=== PATIENT | male | born 1940 | race American Indian/Alaskan Native ===

== ENCOUNTER → 2019-08-11 | Outpatient (CLI) | payer MEDICARE, OTHER ==
[~2019-08-11] MED LIST: ACET325 PO; ALBU90OI6 INH; BUME2 PO; CEFD300 PO; CEPH500 PO; ENOX30I SUBQ; GABA100 PO; HYDACE5 PO; LISHYD2025 PO; LISI20 PO; OMEP40CA12 PO; OXYC5 PO; Percocet 10-321 EACH PO; SENN187 PO; SULTRIDS PO; TAMS.4ER PO
[2019-08-11 12:09] LABS: BASOPHILS ABSOLUTE AUTO 0.05 K/mm3 (0.00-0.23); BASOPHILS PERCENT AUTO 1 % (0-2); EOSINOPHILS ABSOLUTE AUTO 0.02 K/mm3 (0.00-0.68); EOSINOPHILS PERCENT AUTO 0 % (0-6); Hematocrit 43.9 % (37.0-53.0); Hemoglobin 15.5 g/dL (13.5-17.5); IMMATURE GRAN ABSOLUTE AUTO 0.15 K/mm3 (0.00-0.10); IMMATURE GRAN PERCENT AUTO 3 % (0-1); LYMPHOCYTES ABSOLUTE AUTO 1.16 K/mm3 (0.84-5.20); LYMPHOCYTES PERCENT AUTO 24 % (21-46); MONOCYTES ABSOLUTE AUTO 0.48 K/mm3 (0.16-1.47); MONOCYTES PERCENT AUTO 10 % (4-13); Mean Corpuscular HGB 31.5 pg (26.0-34.0); Mean Corpuscular HGB Conc 35.3 g/dL (31.5-36.5); Mean Corpuscular Volume 89 fL (80-100); Mean Platelet Volume 12.7 fL (9.1-12.4); NEUTROPHILS ABSOLUTE AUTO 3.07 K/mm3 (1.96-9.15); NEUTROPHILS PERCENT AUTO 62 % (41-73); Platelet Count 123 K/mm3 (150-400); RDW Coefficient Variation 13.9 % (11.7-14.2); RDW Standard Deviation 45.1 fL (35.1-46.3); Red Blood Cell Count 4.92 M/mm3 (4.30-5.90); White Blood Cell Count 4.93 K/mm3 (4.00-11.30)
[2019-08-11 12:17] LABS: Albumin, Blood 2.7 g/dL (3.4-5.0); Albumin/Globulin Ratio 0.8 (0.8-1.8); Bun/Creatinine Ratio 16.8 (12.0-20.0); Calcium, Blood 8.5 mg/dL (8.5-10.1); Creatinine, Blood 1.31 mg/dL (0.60-1.20); Globulin, Blood 3.2 g/dL (2.2-4.0); Potassium, Blood 4.3 mmol/L (3.5-5.5); Total Protein, Blood 5.9 g/dL (6.4-8.2)
== END ==
LOC: LAB EV 12:04 → LAB SHORT 12:04
PROVIDERS: Nurse Practitioner
DX: L03.90 Cellulitis, unspecified (principal)
CPT/HCPCS: 80053; 85025

== ENCOUNTER 2020-07-13 22:10 | Emergency (ER) | payer MEDICARE, OTHER ==
[~2020-07-13] VITALS: Ht 198.1 cm; Wt 136.1 kg
[2020-07-13] MEDS ORDERED: DIPH25 PO (22:24)
[2020-07-13 22:52] LABS: PCO2 Arterial 38.6 mmHg (35-45); PO2 Arterial 79.4 mmHg (80-100); pH Blood Arterial 7.42 (7.35-7.45)
[2020-07-13 22:58] LABS: BASOPHILS ABSOLUTE AUTO 0.21 K/mm3 (0.00-0.23); BASOPHILS PERCENT AUTO 1 % (0-2); EOSINOPHILS ABSOLUTE AUTO 0.01 K/mm3 (0.00-0.68); EOSINOPHILS PERCENT AUTO 0 % (0-6); Hematocrit 45.8 % (37.0-53.0); Hemoglobin 15.7 g/dL (13.5-17.5); IMMATURE GRAN ABSOLUTE AUTO 0.52 K/mm3 (0.00-0.10); IMMATURE GRAN PERCENT AUTO 3 % (0-1); LYMPHOCYTES ABSOLUTE AUTO 1.26 K/mm3 (0.84-5.20); LYMPHOCYTES PERCENT AUTO 7 % (21-46); MONOCYTES ABSOLUTE AUTO 3.17 K/mm3 (0.16-1.47); MONOCYTES PERCENT AUTO 18 % (4-13); Mean Corpuscular HGB 30.8 pg (26.0-34.0); Mean Corpuscular HGB Conc 34.3 g/dL (31.5-36.5); Mean Corpuscular Volume 90 fL (80-100); NEUTROPHILS ABSOLUTE AUTO 12.97 K/mm3 (1.96-9.15); NEUTROPHILS PERCENT AUTO 71 % (41-73); Platelet Count 72 K/mm3 (150-400); RDW Standard Deviation 46.8 fL (35.1-46.3); Red Blood Cell Count 5.09 M/mm3 (4.30-5.90); White Blood Cell Count 18.14 K/mm3 (4.00-11.30)
[2020-07-13 23:16] LABS: Alanine Aminotransfer (ALT/SGP 14 U/L (12-78); Albumin, Blood 2.9 g/dL (3.4-5.0); Albumin/Globulin Ratio 0.9 (0.8-1.8); Alk Phos 62 U/L (50-136); Anion Gap 7 mmol/L (6-16); Aspartate Aminotrans (AST/SGOT 17 U/L (12-37); Bilirubin, Total 2.4 mg/dL (0.1-1.0); Blood Urea Nitrogen 24 mg/dL (8-24); Bun/Creatinine Ratio 17.1 (12.0-20.0); CO2, Blood 26 mmol/L (21-32); Calcium, Blood 8.3 mg/dL (8.5-10.1); Chloride, Blood 105 mmol/L (98-108); Globulin, Blood 3.3 g/dL (2.2-4.0); Glomerular Filtration Rate 52 (60-); Glucose, Blood 127 mg/dL (70-99); Sodium, Blood 138 mmol/L (136-145); Total Protein, Blood 6.2 g/dL (6.4-8.2); Troponin I <0.015 ng/mL (0.000-0.040)
[2020-07-13 23:24] LABS: Influenza A, PCR Negative (NEGATIVE); Influenza B, PCR Negative (NEGATIVE); Resp Syncytial Virus, PCR Negative (NEGATIVE); SARS-Cov-2 (COVID-19) PCR, MMC Negative (NEGATIVE)
[2020-07-14] MEDS ORDERED: Lasix40 MG PO (01:28)
[2020-07-14] MEDS ORDERED: POTCHL20ER PO (01:29)
== END 2020-07-14 01:48 | disposition home or self-care (01) ==
LOC: ER 22:10
PROVIDERS: Emergency Medicine
DX: E87.70 Fluid overload, unspecified (principal); Z91.09 Other allergy status, other than to drugs and biological substances; Z20.828 Contact with and (suspected) exposure to other viral communicable diseases; Z79.899 Other long term (current) drug therapy
CPT/HCPCS: 0241U; 36415; 36600; 71045; 80053; 82803; 83880; 84484; 85025; 93005; 93010; 94640; 96374; 99284-25

== ENCOUNTER 2021-02-05 16:32 | Emergency (ER) | payer MEDICARE, OTHER | END 2021-02-05 22:35 | disposition home or self-care (01) | LOC: ER 16:32 | DX: J18.9 Pneumonia, unspecified organism (principal); Z91.09 Other allergy status, other than to drugs and biological substances; Z79.899 Other long term (current) drug therapy ==

== ENCOUNTER → 2021-08-07 | Outpatient (CLI) | payer MEDICARE, OTHER ==
[~2021-08-07] MED LIST changes: +DIPH25 PO; +DOXY100 PO; +Lasix40 MG PO; +POTCHL20ER PO
== END | disposition home or self-care (01) ==
LOC: LAB SHORT 18:49
DX: R10.9 Unspecified abdominal pain (principal)
CPT/HCPCS: 87086

== ENCOUNTER 2021-10-03 18:19 | Inpatient (IN) | payer MEDICARE, OTHER ==
[~2021-10-03] VITALS: Ht 198.1 cm; Wt 158.8 kg
[2021-10-03 19:08] LABS: Source, Urine Clean Catch
[2021-10-03 19:18] LABS: Blood, Urine 5+ (Neg); Glucose Qualitative, Urine Neg (Neg); Ketones, Urine 2+ (Neg); Leukocyte Esterase, Urine 3+ (Neg); Nitrite, Urine Neg (Neg); Protein, Urine 3+ (Neg); Specific Gravity, Urine 1.025 (1.003-1.022); Urobilinogen, Urine 1+ (Normal)
[2021-10-03 19:22] LABS: BASOPHILS ABSOLUTE AUTO 0.19 K/mm3 (0.00-0.23); BASOPHILS PERCENT AUTO 1 % (0-2); EOSINOPHILS ABSOLUTE AUTO 0.03 K/mm3 (0.00-0.68); EOSINOPHILS PERCENT AUTO 0 % (0-6); Hematocrit 45.3 % (37.0-53.0); Hemoglobin 15.6 g/dL (13.5-17.5); IMMATURE GRAN ABSOLUTE AUTO 0.56 K/mm3 (0.00-0.10); IMMATURE GRAN PERCENT AUTO 3 % (0-1); LYMPHOCYTES ABSOLUTE AUTO 1.66 K/mm3 (0.84-5.20); LYMPHOCYTES PERCENT AUTO 8 % (21-46); MONOCYTES ABSOLUTE AUTO 3.98 K/mm3 (0.16-1.47); MONOCYTES PERCENT AUTO 18 % (4-13); Mean Corpuscular HGB Conc 34.4 g/dL (31.5-36.5); Mean Corpuscular Volume 93 fL (80-100); NEUTROPHILS ABSOLUTE AUTO 15.26 K/mm3 (1.96-9.15); NEUTROPHILS PERCENT AUTO 70 % (41-73); NRBC ABSOLUTE 0.02 K/mm3 (0.00-0.02); NRBC Auto 0.1 /100 WBC (0.0-0.2); Platelet Count 72 K/mm3 (150-400); RDW Coefficient Variation 15.4 % (11.7-14.2); RDW Standard Deviation 52.7 fL (35.1-46.3); Red Blood Cell Count 4.88 M/mm3 (4.30-5.90); White Blood Cell Count 21.68 K/mm3 (4.00-11.30)
[2021-10-03 19:27] LABS: Appearance, Urine Cloudy (Clear); Bilirubin, Urine 1+ (Neg); Color, Urine Pale Yellow (P-Yellow)
[2021-10-03 19:28] LABS: Amorphous Light (0-Heavy); Bacteria Many /hpf; Mucus Light (0-Heavy); Red Blood Cells, Urine 25-50 /hpf (0-2); Squamous Epithelial Cells Few /hpf (Few); Yeast/Fungi Urine Few /hpf
[2021-10-03 19:34] LABS: Alanine Aminotransfer (ALT/SGP 14 U/L (12-78); Albumin, Blood 3.5 g/dL (3.4-5.0); Albumin/Globulin Ratio 1.1 (0.8-1.8); Alk Phos 70 U/L (50-136); Anion Gap 8 mmol/L (6-16); Aspartate Aminotrans (AST/SGOT 18 U/L (12-37); Bilirubin, Total 2.4 mg/dL (0.1-1.0); Blood Urea Nitrogen 22 mg/dL (8-24); CO2, Blood 26 mmol/L (21-32); Calcium, Blood 9.3 mg/dL (8.5-10.1); Chloride, Blood 104 mmol/L (98-108); Creatinine, Blood 1.16 mg/dL (0.60-1.20); Ethanol (Alcohol), Blood, Med <3 mg/dL; Globulin, Blood 3.3 g/dL (2.2-4.0); Glomerular Filtration Rate >60 (60-); Glucose, Blood 91 mg/dL (70-99); Potassium, Blood 4.5 mmol/L (3.5-5.5); Sodium, Blood 138 mmol/L (136-145); Total Protein, Blood 6.8 g/dL (6.4-8.2)
[2021-10-03 21:00] LABS: International Normalized Ratio 1.5; Prothrombin Time Results 15.3 Sec (9.7-11.5)
[2021-10-04 05:27] LABS: BASOPHILS ABSOLUTE AUTO 0.15 K/mm3 (0.00-0.23); BASOPHILS PERCENT AUTO 1 % (0-2); EOSINOPHILS ABSOLUTE AUTO 0.02 K/mm3 (0.00-0.68); EOSINOPHILS PERCENT AUTO 0 % (0-6); Hematocrit 40.5 % (37.0-53.0); Hemoglobin 13.8 g/dL (13.5-17.5); IMMATURE GRAN ABSOLUTE AUTO 0.57 K/mm3 (0.00-0.10); IMMATURE GRAN PERCENT AUTO 3 % (0-1); LYMPHOCYTES ABSOLUTE AUTO 1.46 K/mm3 (0.84-5.20); LYMPHOCYTES PERCENT AUTO 7 % (21-46); MONOCYTES ABSOLUTE AUTO 3.46 K/mm3 (0.16-1.47); MONOCYTES PERCENT AUTO 17 % (4-13); Mean Corpuscular HGB 31.7 pg (26.0-34.0); Mean Corpuscular HGB Conc 34.1 g/dL (31.5-36.5); Mean Corpuscular Volume 93 fL (80-100); NEUTROPHILS ABSOLUTE AUTO 14.45 K/mm3 (1.96-9.15); NEUTROPHILS PERCENT AUTO 72 % (41-73); Platelet Count 75 K/mm3 (150-400); RDW Coefficient Variation 15.2 % (11.7-14.2); RDW Standard Deviation 52.4 fL (35.1-46.3); Red Blood Cell Count 4.35 M/mm3 (4.30-5.90); White Blood Cell Count 20.11 K/mm3 (4.00-11.30)
--- NOTE | 2021-10-04 06:01 | NUR ---
SHIFT SUMMARY PT ADMITTED TO ROOM 331 FROM ER. PT A/O X 3, UNSURE OF DATE, FORGETFUL AT TIMES. PT REPORTS BURNING WITH URINATION, MÁRQUEZ PLACED PER ORDERS, UGO, CLOUDY URINE NOTED. PT SOB AT REST, FEW WHEEZES HEARD IN UPPER LOBES, DIM IN BASES, MED PER MAR WITH LASIX AND 1650 ML URINE OUTPUT FOR SHIFT. PT STANDS WITH 1 ASSIST, USES CANE AT HOME. SKIN INTACT, VSS, CONTROLLED AFIB NOTED ON TELE. PT ORIENTED TO ROOM AND PLAN OF CARE. ANTICIPATE D/C WHEN MEDICALLY STABLE.
[2021-10-04 06:07] LABS: Albumin, Blood 2.9 g/dL (3.4-5.0); Bun/Creatinine Ratio 18.9 (12.0-20.0); Creatinine, Blood 1.22 mg/dL (0.60-1.20); Globulin, Blood 2.9 g/dL (2.2-4.0); Potassium, Blood 3.8 mmol/L (3.5-5.5); Total Protein, Blood 5.8 g/dL (6.4-8.2)
--- NOTE | 2021-10-04 15:16 | NUR ---
SHIFT SUMMARY PT AWAKE AT START OF SHIFT THIS AM. SOME CONFUSION NOTED. MÁRQUEZ TO GRAVITY, PATENT WITH GOOD OUTPUT; SEE CHART. PT VERY SWOLLEN; 4+ EDEMA TO BLE'S. LASIX GIVEN. A-FIB PER TELE MX. SOME SOB WITH EXERTION TRYING TO GET UP TO EOB. PT IS MORBIDLY OBESE, MAKING MOBILITY DIFFICULT. PT/OT IN TO WORK WITH PT. DR Koby FELDMAN IN TO SEE PT THIS AM. PT'S LATER IN TO VISIT AND TOOK PT'S CLOTHES HOME WASH THEM. PT RESTING QUIETLY WATCHING TV. CALL LT IN REACH.
[2021-10-05 05:26] LABS: BASOPHILS ABSOLUTE AUTO 0.15 K/mm3 (0.00-0.23); BASOPHILS PERCENT AUTO 1 % (0-2); EOSINOPHILS ABSOLUTE AUTO 0.04 K/mm3 (0.00-0.68); EOSINOPHILS PERCENT AUTO 0 % (0-6); Hemoglobin 14.5 g/dL (13.5-17.5); IMMATURE GRAN ABSOLUTE AUTO 0.56 K/mm3 (0.00-0.10); IMMATURE GRAN PERCENT AUTO 4 % (0-1); LYMPHOCYTES ABSOLUTE AUTO 1.49 K/mm3 (0.84-5.20); LYMPHOCYTES PERCENT AUTO 10 % (21-46); MONOCYTES ABSOLUTE AUTO 2.98 K/mm3 (0.16-1.47); MONOCYTES PERCENT AUTO 20 % (4-13); Mean Corpuscular HGB 32.1 pg (26.0-34.0); Mean Corpuscular HGB Conc 34.5 g/dL (31.5-36.5); Mean Corpuscular Volume 93 fL (80-100); NEUTROPHILS ABSOLUTE AUTO 10.01 K/mm3 (1.96-9.15); NEUTROPHILS PERCENT AUTO 66 % (41-73); Platelet Count 72 K/mm3 (150-400); RDW Coefficient Variation 15.4 % (11.7-14.2); RDW Standard Deviation 52.8 fL (35.1-46.3); Red Blood Cell Count 4.52 M/mm3 (4.30-5.90); White Blood Cell Count 15.23 K/mm3 (4.00-11.30)
[2021-10-05 05:49] LABS: Albumin, Blood 2.8 g/dL (3.4-5.0); Albumin/Globulin Ratio 0.9 (0.8-1.8); Bilirubin, Total 1.6 mg/dL (0.1-1.0); Bun/Creatinine Ratio 19.2 (12.0-20.0); Calcium, Blood 9.3 mg/dL (8.5-10.1); Creatinine, Blood 1.2 mg/dL (0.60-1.20); Potassium, Blood 3.5 mmol/L (3.5-5.5); Total Protein, Blood 5.8 g/dL (6.4-8.2)
--- NOTE | 2021-10-05 06:00 | NUR ---
PM SHIFT SUMMARY PATIENT IS A&OX2 - HE IS NOT ORIENTED TO TIME AND SITUATION. HE KEPT STATING THAT NO DOCTORS CAME TO SEE HIM AND I KEPT LETTING HIM KNOW WHAT TIME IT WAS QUITE OFTEN. HE KEPT CALLING ME WITH HIS CALL LIGHT, BUT WAS EITHER UNSURE WHY, OR DID NOT NEED ANYTHING. HE BELIEVES HE IS GOING HOME TODAY. HE WISHES TO SPEAK WITH THE DOCTOR WHEN THEY MAKE THEIR ROUNDS. MÁRQUEZ IN PLACE AND DRAINING YELLOW URINE. BLOOD CULTURES SHOWED NO GROWTH AT DAY 1. HAS BLE SWELLING WHICH IS BASELINE BASED ON NOTES. ONLY TELE CALLS WERE PERTAINING TO HIS LEADS COMING OFF. PT/OT TO EVALUATE HIM AND MAKE RECS ON DC PLANNING.
--- NOTE | 2021-10-05 15:36 | NUR ---
SHIFT SUMMARY PT RESTING QUIETLY AT START OF SHIFT. WOKE EASILY FOR CARE. DECLINED GETTING UP TO SHOWER. PT WANING TO GO HOME ALL DAY, BUT REMAINS VERY WEAK AND DECONDITIONED. DR PATEL AND DR PERSON BOTH IN TO SEE PT THIS AFTERNOON. NEW ORDERS PLACED. IV SITE LEAKING THIS AM; NEW ORDER TO LEAVE IV OUT AND MEDS CHANGED TO PO. ORDERS TO D/C TELE AND MÁRQUEZ CATH. BLADDER SCANNED FOR PVR WITH ONLY 58cc. PT VOIDING 100cc URINE EVERY FEW MINUTES. PT IS CONTINENT WITH ASSISTANCE ONLY. PT USES CALL LT AT TIMES, BUT MOSTLY JUST YELLS OUT. NO C/O PAIN. DOES NOT LIKE THE FOOD HERE. RESTING QUIELY, WATCHING TV AT THIS TIME. CALL LT IN REACH.
[2021-10-06 05:31] LABS: BASOPHILS ABSOLUTE AUTO 0.12 K/mm3 (0.00-0.23); BASOPHILS PERCENT AUTO 1 % (0-2); EOSINOPHILS ABSOLUTE AUTO 0.06 K/mm3 (0.00-0.68); EOSINOPHILS PERCENT AUTO 1 % (0-6); Hematocrit 41.4 % (37.0-53.0); Hemoglobin 14.3 g/dL (13.5-17.5); IMMATURE GRAN ABSOLUTE AUTO 0.39 K/mm3 (0.00-0.10); IMMATURE GRAN PERCENT AUTO 4 % (0-1); LYMPHOCYTES ABSOLUTE AUTO 1.36 K/mm3 (0.84-5.20); LYMPHOCYTES PERCENT AUTO 15 % (21-46); MONOCYTES PERCENT AUTO 20 % (4-13); Mean Corpuscular HGB 32.4 pg (26.0-34.0); Mean Corpuscular HGB Conc 34.5 g/dL (31.5-36.5); Mean Corpuscular Volume 94 fL (80-100); NEUTROPHILS ABSOLUTE AUTO 5.49 K/mm3 (1.96-9.15); NEUTROPHILS PERCENT AUTO 59 % (41-73); Platelet Count 82 K/mm3 (150-400); RDW Standard Deviation 51.9 fL (35.1-46.3); Red Blood Cell Count 4.41 M/mm3 (4.30-5.90); White Blood Cell Count 9.32 K/mm3 (4.00-11.30)
[2021-10-06 05:39] LABS: Mean Platelet Volume 13.1 fL (9.1-12.4)
--- NOTE | 2021-10-06 05:46 | NUR ---
PATIENT HAD MÁRQUEZ REMOVED DURING AM SHIFT. WAS TOLD DURING REPORT THAT HE WAS CALLING FOR HELP WITH URNIAL MULTIPLE TIMES AN HOUR. WHEN I ARRIVED, I SPOKE TO HIM ABOUT URGENCY AND HOW BEST TO GET AHOLD PF US DURING SHIFT - USE CALL LIGHT .VS. YELLING FOR US. I GAVE HIM AN ADDITIONAL URINAL AND STATED HE SHOULD CALL WHEN BOTH NEEDED EMPTIED. OVER THE COURSE OF THE SHIFT, URINALS WERE EMPTIED 17 TIMES. HE SAYS HE WAS FILLING THEM HALF WAY, BUT WAS ONLY GETTING ABOUT 75-150ML PER URINATION. HE WAS STILL VERY CONFUSED DURING THE SHIFT, JUST HE WAS PREVIOUS EVENING. PER REPORT, PT/OT TRIED TO WORK WITH HIM AND SAID HE WILL NEED TO HEAD TO A SNF TO REHAB, DUE TO DECONDITIONING. HIS TELE WAS ALSO REMOVED DURING AM SHIFT. UC WAS POSITIVE FOR KLEBSIELLA OXYTOCA. BLOOD CULTURES SHOWED NO GROWTH AT DAY 2. HE IS ON STRICT I&O'S. HE HAD NO COMPLAINTS DURING THE SHIFT.
--- NOTE | 2021-10-06 17:10 | NUR ---
NO ACUTE CHANGES THIS SHIFT. PATIENT UP WITH FWW, GB AND 2 ASSIST TO RESTROOM. A/OX3, FORGETFUL. WORKED WITH PT/OT TODAY. VSS, ON RA. TOLERATING REGULAR DIET. USING URINAL TO VOID, HAVING FREQUENCY AND URGENCY. AT BEDSIDE THIS AM AND IS ON BOARD WITH PATIENT GOING TO SNF AT DISCHARGE. PATIENT COOPERATIVE WITH CARE AND USES CALL LIGHT APPROPRIATELY FOR ASSISTANCE.
--- NOTE | 2021-10-07 05:47 | NUR ---
SHIFT SUMMARY PT VERY RESTLESS T/O NIGHT. HAS NOT SLEPT TONIGHT. AOX2-SELF, PLACE. UNAWARE SITUATION OR DATE. FORGETFUL, CONFUSED & IMPULSIVE. VSS. DENIES PAIN, N/V OR DYSPNEA. +3 EDEMA BLE, ELEVATED LEGS ON PILLOWS. INCONT/CONT c URINAL, HAS URGENCY & FREQUENCY. CALL LIGHT & BED ALARM IN PLACE. WCTM.
[2021-10-07] MEDS ORDERED: SULFAMETHOXAZO1 EAC1 PO (16:36)
[2021-10-07] MEDS ORDERED: VISBIOME 112.51 EACH PO (16:37)
[2021-10-07 16:55] LABS: Influenza A, PCR NEGATIVE (NEGATIVE); Influenza B, PCR NEGATIVE (NEGATIVE); Resp Syncytial Virus, PCR NEGATIVE (NEGATIVE); SARS-Cov-2 (COVID-19) PCR, MMC NEGATIVE (NEGATIVE)
--- NOTE | 2021-10-07 17:53 | NUR ---
NO ACUTE CHANGES THIS SHIFT. PATIENT HAS FACILITY DISCHARGE ORDERS AND IS AWAITING TRANSPORT TO [facility]. VSS, ON RA. LAST BM WAS LAST NIGHT. PATIENT TOLERATING DIET. DENIES ANY PAIN OR DISCOMFORT. SPOKE WITH PATIENTS REBEKAH AND UPDATED HER ABOUT DISCHARGE.
== END 2021-10-07 18:11 | DRG 871 ==
LOC: ER 18:19 → MEDS 23:01
PROVIDERS: Emergency Medicine; Family Medicine; ADMIT Internal Medicine
DX: A41.59 Other Gram-negative sepsis (principal); I50.33 Acute on chronic diastolic (congestive) heart failure; G92.8 Other toxic encephalopathy; N39.0 Urinary tract infection, site not specified; Z68.41 Body mass index [BMI] 40.0-44.9, adult; Z20.822 Contact with and (suspected) exposure to COVID-19; B96.1 Klebsiella pneumoniae [K. pneumoniae] as the cause of diseases classified elsewhere; E66.9 Obesity, unspecified; F03.90 Unspecified dementia, unspecified severity, without behavioral disturbance, psychotic disturbance, mood disturbance, and anxiety; D69.6 Thrombocytopenia, unspecified; I48.0 Paroxysmal atrial fibrillation; Z28.21 Immunization not carried out because of patient refusal; N40.0 Benign prostatic hyperplasia without lower urinary tract symptoms; M19.90 Unspecified osteoarthritis, unspecified site; Z90.5 Acquired absence of kidney; Z79.899 Other long term (current) drug therapy; Z91.09 Other allergy status, other than to drugs and biological substances; Z85.528 Personal history of other malignant neoplasm of kidney; Z98.890 Other specified postprocedural states
CPT/HCPCS: 0241U; 36415; 74022; 80053; 81001; 82140; 83605; 83690; 83880; 84484; 85025; 85610; 85730; 87040; 87077; 87086; 87186; 93005; 93010; 93308; 93321; 94640; 94760; 96374; 97110; 97162; 97166; 97530; 99285-25; A9270; G0480; J0696; J1650; J1940

== ENCOUNTER 2022-04-29 12:38 | Emergency (ER) | payer MEDICARE, OTHER ==
[~2022-04-29] VITALS: Ht 198.1 cm; Wt 154.2 kg
[~2022-04-29 12:38] MED LIST changes: +SULFAMETHOXAZO1 EAC1 PO; +VISBIOME 112.51 EACH PO
[2022-04-29 13:26] LABS: BASOPHILS ABSOLUTE AUTO 0.08 K/mm3 (0.00-0.23); BASOPHILS PERCENT AUTO 2 % (0-2); EOSINOPHILS ABSOLUTE AUTO 0.06 K/mm3 (0.00-0.68); EOSINOPHILS PERCENT AUTO 2 % (0-6); Hematocrit 43.2 % (37.0-53.0); Hemoglobin 14.8 g/dL (13.5-17.5); IMMATURE GRAN ABSOLUTE AUTO 0.07 K/mm3 (0.00-0.10); IMMATURE GRAN PERCENT AUTO 2 % (0-1); LYMPHOCYTES ABSOLUTE AUTO 1.53 K/mm3 (0.84-5.20); LYMPHOCYTES PERCENT AUTO 39 % (21-46); MONOCYTES PERCENT AUTO 13 % (4-13); Mean Corpuscular HGB 30.3 pg (26.0-34.0); Mean Corpuscular HGB Conc 34.3 g/dL (31.5-36.5); Mean Corpuscular Volume 88 fL (80-100); NEUTROPHILS ABSOLUTE AUTO 1.65 K/mm3 (1.96-9.15); NEUTROPHILS PERCENT AUTO 42 % (41-73); Platelet Count 83 K/mm3 (150-400); RDW Coefficient Variation 16.7 % (11.7-14.2); RDW Standard Deviation 53.4 fL (35.1-46.3); Red Blood Cell Count 4.89 M/mm3 (4.30-5.90); White Blood Cell Count 3.89 K/mm3 (4.00-11.30)
[2022-04-29 13:42] LABS: Albumin, Blood 3.6 g/dL (3.4-5.0); Albumin/Globulin Ratio 0.9 (0.8-1.8); Bilirubin, Total 1.3 mg/dL (0.1-1.0); Calcium, Blood 9.4 mg/dL (8.5-10.1); Creatinine, Blood 1.43 mg/dL (0.60-1.20); Globulin, Blood 3.8 g/dL (2.2-4.0); Potassium, Blood 4.9 mmol/L (3.5-5.5); Total Protein, Blood 7.4 g/dL (6.4-8.2)
== END 2022-04-29 15:47 | disposition home or self-care (01) ==
LOC: ER 12:38
PROVIDERS: Emergency Medicine
DX: I50.9 Heart failure, unspecified (principal); R60.0 Localized edema; M25.562 Pain in left knee
CPT/HCPCS: 80053; 83880; 84484; 85025; 93005; 93010; 99283-25

== ENCOUNTER 2022-06-11 08:44 | Inpatient (IN) | payer MEDICARE, OTHER ==
[~2022-06-11] VITALS: Ht 198.1 cm; Wt 159.0 kg
[2022-06-11 09:58] LABS: BASOPHILS PERCENT AUTO 2 % (0-2); EOSINOPHILS ABSOLUTE AUTO 0.02 K/mm3 (0.00-0.68); EOSINOPHILS PERCENT AUTO 0 % (0-6); Hemoglobin 14.1 g/dL (13.5-17.5); IMMATURE GRAN ABSOLUTE AUTO 0.12 K/mm3 (0.00-0.10); IMMATURE GRAN PERCENT AUTO 2 % (0-1); LYMPHOCYTES PERCENT AUTO 26 % (21-46); MONOCYTES ABSOLUTE AUTO 1.54 K/mm3 (0.16-1.47); MONOCYTES PERCENT AUTO 23 % (4-13); Mean Corpuscular HGB 30.1 pg (26.0-34.0); Mean Corpuscular HGB Conc 34.4 g/dL (31.5-36.5); Mean Corpuscular Volume 87 fL (80-100); NEUTROPHILS ABSOLUTE AUTO 3.15 K/mm3 (1.96-9.15); NEUTROPHILS PERCENT AUTO 48 % (41-73); Platelet Count 70 K/mm3 (150-400); RDW Coefficient Variation 17.2 % (11.7-14.2); RDW Standard Deviation 54.3 fL (35.1-46.3); Red Blood Cell Count 4.69 M/mm3 (4.30-5.90); White Blood Cell Count 6.63 K/mm3 (4.00-11.30)
[2022-06-11 10:12] LABS: Source, Urine Straight Cath
[2022-06-11 10:14] LABS: Appearance, Urine Clear (Clear); Bilirubin, Urine Neg (Neg); Blood, Urine Neg (Neg); Color, Urine Yellow (P-Yellow); Glucose Qualitative, Urine Neg (Neg); Ketones, Urine Neg (Neg); Leukocyte Esterase, Urine Neg (Neg); Nitrite, Urine Neg (Neg); Protein, Urine Neg (Neg); Specific Gravity, Urine 1.015 (1.003-1.022); Urobilinogen, Urine 1+ (Normal)
[2022-06-11 10:17] LABS: Albumin, Blood 3.3 g/dL (3.4-5.0); Bilirubin, Total 1.1 mg/dL (0.1-1.0); Bun/Creatinine Ratio 14.6 (12.0-20.0); Calcium, Blood 8.8 mg/dL (8.5-10.1); Creatinine, Blood 1.37 mg/dL (0.60-1.20); Globulin, Blood 3.3 g/dL (2.2-4.0); Potassium, Blood 4.1 mmol/L (3.5-5.5); Total Protein, Blood 6.6 g/dL (6.4-8.2)
--- NOTE | 2022-06-11 18:23 | NUR ---
SHIFT SUMMARY PT ARRIVED AROUND 1700. PT LIFTED INTO BED IN ROOM. SKIN CHECKS OREFORMED. ADMIT ASSESMENT DONE. TELE PLACED AND CALLED ABOUT AFIB, NOTIFIED AND MEEDICATIONS ORDERED PRN. PT USES URINAL, BUT CAN BE INCONTINENT. BED IN LOWEST POSITION AND CALL LIGHT IN REACH
[2022-06-12 05:58] LABS: Hematocrit 39.1 % (37.0-53.0); Hemoglobin 13.7 g/dL (13.5-17.5); Mean Corpuscular HGB 30.5 pg (26.0-34.0); Mean Corpuscular Volume 87 fL (80-100); Platelet Count 72 K/mm3 (150-400); RDW Coefficient Variation 17.2 % (11.7-14.2); RDW Standard Deviation 54.9 fL (35.1-46.3); Red Blood Cell Count 4.49 M/mm3 (4.30-5.90); White Blood Cell Count 6.88 K/mm3 (4.00-11.30)
[2022-06-12 06:47] LABS: Magnesium, Blood 1.7 mg/dL (1.6-2.4)
[2022-06-12 06:48] LABS: Bun/Creatinine Ratio 16.1 (12.0-20.0); Creatinine, Blood 1.37 mg/dL (0.60-1.20); Potassium, Blood 4.4 mmol/L (3.5-5.5)
--- NOTE | 2022-06-12 07:22 | NUR ---
SHIFT SUMMARY: PATIENT IS A&OX4, VSS. REPORTS RIGHT KNEE PAIN WITH T&P. REFUSES SCD'S AND LILLIE HOSE DUE TO BILAT LEG EDEMA. " I CAN'T TAKE THE TIGHTNESS". VOIDING IN THE URINAL INDEPENDANTLY BUT SPILLS A LITTLE. BRUISES ARE OBSERVED ON BUTTOCKS S/P A FALL AT HOME.
[2022-06-12 16:21] LABS: Bun/Creatinine Ratio 15.3 (12.0-20.0); Calcium, Blood 9.2 mg/dL (8.5-10.1); Creatinine, Blood 1.5 mg/dL (0.60-1.20)
--- NOTE | 2022-06-12 19:19 | NUR ---
SHIFT SUMMARY: NO ACUTE EVENTS. NO EVENTS ON TELEMETRY, AFIB 80'S. DENIED PAIN AT REST, BUT CRIES OUT WHEN BLE ARE MOVED IN ANY WAY. DECLINED OFFERED PAIN MEDS. USING URINAL, SPILLS AT TIMES. DOES NOT USE CALL LIGHT WITH REGULARITY. INCONTINENT OF BM X 2. WORKED WITH PHYSICAL THERAPY; UNABLE TO GET PT TO EGDE OF BED TO DANGLE LET ALONE TRY TO STAND. UNABLE TO PLACE TEDS D/T SIZE OF BLE. AND DAUGHTER VISITED, BROUGHT FOOD FROM HOME FOR PT (TURKEY, MASHED POTATOES, HAM, PIE). THEY WERE VERBALLY EDUCATED ABOUT PT'S CURRENT LOW SODIUM DIET AND HOW SALT CAUSES HIM TO RETAIN FLUID AND HE IS BEING DIURESED. DAUGHTER BECAME IRRITATED, STATING THAT IT WAS MORE IMPORTANT FOR HIM TO HAVE "QUALITY OF LIFE" THAN ADHERE TO STRICT DIET. REINFORCED EDUCATION THAT, WHILE HE IS IN THE HOSPITAL, HE IS TO FOLLOW PROVIDER'S DIET ORDERS AND THEY ARE NOT TO BRING ANY OUTSIDE FOOD IN. COMPLIANCE NOT EXPECTED.
[2022-06-12 21:45] LABS: BASOPHILS ABSOLUTE AUTO 0.11 K/mm3 (0.00-0.23); BASOPHILS PERCENT AUTO 1 % (0-2); EOSINOPHILS ABSOLUTE AUTO 0.02 K/mm3 (0.00-0.68); EOSINOPHILS PERCENT AUTO 0 % (0-6); Hematocrit 39.5 % (37.0-53.0); Hemoglobin 13.8 g/dL (13.5-17.5); IMMATURE GRAN ABSOLUTE AUTO 0.31 K/mm3 (0.00-0.10); IMMATURE GRAN PERCENT AUTO 3 % (0-1); LYMPHOCYTES ABSOLUTE AUTO 1.73 K/mm3 (0.84-5.20); LYMPHOCYTES PERCENT AUTO 14 % (21-46); MONOCYTES ABSOLUTE AUTO 2.92 K/mm3 (0.16-1.47); MONOCYTES PERCENT AUTO 24 % (4-13); Mean Corpuscular HGB Conc 34.9 g/dL (31.5-36.5); Mean Corpuscular Volume 86 fL (80-100); NEUTROPHILS ABSOLUTE AUTO 6.98 K/mm3 (1.96-9.15); NEUTROPHILS PERCENT AUTO 58 % (41-73); Platelet Count 65 K/mm3 (150-400); RDW Standard Deviation 52.9 fL (35.1-46.3); White Blood Cell Count 12.07 K/mm3 (4.00-11.30)
[2022-06-12 21:46] LABS: Bicarbonate Venous 30.3 mmol/L (24.0-30.0); PCO2 Venous 40.3 mmHg (38-42); pH Blood Venous 7.49 (7.34-7.37)
[2022-06-12 21:59] LABS: Albumin, Blood 3.1 g/dL (3.4-5.0); Anion Gap 8 mmol/L (6-16); Blood Urea Nitrogen 28 mg/dL (8-24); Bun/Creatinine Ratio 17.5 (12.0-20.0); CO2, Blood 29 mmol/L (21-32); Calcium, Blood 9.1 mg/dL (8.5-10.1); Chloride, Blood 100 mmol/L (98-108); Glomerular Filtration Rate 43 (60-); Glucose, Blood 139 mg/dL (70-99); Phosphorus, Blood 2.8 mg/dL (2.5-4.9); Potassium, Blood 3.6 mmol/L (3.5-5.5); Sodium, Blood 137 mmol/L (136-145)
[2022-06-12 22:40] LABS: Influenza A, PCR NEGATIVE (NEGATIVE); Influenza B, PCR NEGATIVE (NEGATIVE); Resp Syncytial Virus, PCR NEGATIVE (NEGATIVE); SARS-Cov-2 (COVID-19) PCR, MMC NEGATIVE (NEGATIVE)
--- NOTE | 2022-06-13 04:20 | NUR ---
SHIFT SUMMARY: PATIENT WAS ORIENTED TO SELF ONLY AT START OF SHIFT. PATIENT HAS HAD A LOW GRADE TEMP. ALL DAY. PATIENT IS ALSO LETHARGIC. DR RAZA WAS NOTIFIED AND STAT LABS, COVID/FLU/RSV SWAB AND CHEST XRAY WERE ORDERED, WBC ARE ELEVATED. SWAB WAS NEGATIVE FOR ALL. DR RAZA WAS AGIN UPDATED. PROCALCITONIN LEVEL WAS ADDED. PROCALCITONIN WAS ELEVATED AT 0.74. DR CHAVES WAS NOTIFED AND ROCHEPHIN 1 GR NOW WAS ORDERED. PATIENT THEN ASPIRATED ON WATER. DR CHAVES WAS NOTIFIED OF EVENT. PATIENT IS NOW NPO UNTIL A SWALLOW EVAL BY SPEECH THERAPY IS DONE. PATIENT HAS BEEN INC. OF LARGE AMOUNTS OF URINE AND A VERY LARGE BM.
[2022-06-13 05:57] LABS: BASOPHILS ABSOLUTE AUTO 0.16 K/mm3 (0.00-0.23); BASOPHILS PERCENT AUTO 1 % (0-2); EOSINOPHILS ABSOLUTE AUTO 0.03 K/mm3 (0.00-0.68); EOSINOPHILS PERCENT AUTO 0 % (0-6); Hematocrit 39.8 % (37.0-53.0); Hemoglobin 14.2 g/dL (13.5-17.5); IMMATURE GRAN ABSOLUTE AUTO 0.44 K/mm3 (0.00-0.10); IMMATURE GRAN PERCENT AUTO 3 % (0-1); LYMPHOCYTES ABSOLUTE AUTO 1.91 K/mm3 (0.84-5.20); LYMPHOCYTES PERCENT AUTO 14 % (21-46); MONOCYTES ABSOLUTE AUTO 3.83 K/mm3 (0.16-1.47); MONOCYTES PERCENT AUTO 27 % (4-13); Mean Corpuscular HGB 30.9 pg (26.0-34.0); Mean Corpuscular HGB Conc 35.7 g/dL (31.5-36.5); Mean Corpuscular Volume 87 fL (80-100); NEUTROPHILS ABSOLUTE AUTO 7.79 K/mm3 (1.96-9.15); NEUTROPHILS PERCENT AUTO 55 % (41-73); Platelet Count 72 K/mm3 (150-400); RDW Coefficient Variation 17.1 % (11.7-14.2); RDW Standard Deviation 53.4 fL (35.1-46.3); White Blood Cell Count 14.16 K/mm3 (4.00-11.30)
[2022-06-13 06:21] LABS: Albumin, Blood 3.1 g/dL (3.4-5.0); Albumin/Globulin Ratio 0.9 (0.8-1.8); Bilirubin, Total 2.2 mg/dL (0.1-1.0); Bun/Creatinine Ratio 18.2 (12.0-20.0); Calcium, Blood 9.4 mg/dL (8.5-10.1); Creatinine, Blood 1.7 mg/dL (0.60-1.20); Globulin, Blood 3.4 g/dL (2.2-4.0); Potassium, Blood 3.6 mmol/L (3.5-5.5); Total Protein, Blood 6.5 g/dL (6.4-8.2)
--- NOTE | 2022-06-13 17:21 | NUR ---
SHIFT SUMMARY- PT A@O X2. PT INAPPROPIATE AT TIMES BUT CAN BE REDIRECTED. PT INCONTINENT TO BM BUT DID USE URINAL WITH ASSITANCE X2. PT SLEPT MOST OF DAY AND IS PROGRESSIVELY MORE A@O WITH EACH NAP. CALL LIGHT IN REACH, SIDE RAILS UP, BED ALARM ON. WILL CONTINUE TO MONITOR
--- NOTE | 2022-06-13 18:32 | NUR ---
TRANSFERED PT TO ROOM 352. WILL GIVE NOC SHIFT NURSE REPORT.
--- NOTE | 2022-06-13 18:38 | NUR ---
NOTIFIED OF ROOM TRANSFER 345 TO 352.
[2022-06-13 18:45] LABS: Base Excess Venous 6.9 mmol/L; Bicarbonate Venous 28.7 mmol/L (24.0-30.0); PCO2 Venous 52.4 mmHg (38-42); PO2 Venous 43.1 mmHg (38-42); pH Blood Venous 7.39 (7.34-7.37)
--- NOTE | 2022-06-14 04:18 | NUR ---
SHIFT SUMMARY: Pt A/Ox2-3. He was redirected on how to use the call light multiple times overnight but would forget and just shout "nurse!" Pt had c/o chronic back, and knee pain whenever repopstioned. Pt was repostioned as tolerated throughout the night. He requested to use the urinal various times for voiding needs. He occasionally was also incontienent. Pt had no c/o nausea, or dizziness. he did note he felt SOB with repostioning. Saturations spot checked and were at 92-95% on RA. BLE having +3 edema. Lung sounds are course and wet sounding.
[2022-06-14 07:18] LABS: Hematocrit 38.5 % (37.0-53.0); Hemoglobin 13.5 g/dL (13.5-17.5); Mean Corpuscular HGB 30.6 pg (26.0-34.0); Mean Corpuscular HGB Conc 35.1 g/dL (31.5-36.5); Mean Corpuscular Volume 87 fL (80-100); Platelet Count 71 K/mm3 (150-400); RDW Coefficient Variation 17.1 % (11.7-14.2); RDW Standard Deviation 54.2 fL (35.1-46.3); Red Blood Cell Count 4.41 M/mm3 (4.30-5.90); White Blood Cell Count 9.28 K/mm3 (4.00-11.30)
[2022-06-14 07:34] LABS: Albumin, Blood 2.8 g/dL (3.4-5.0); Albumin/Globulin Ratio 0.8 (0.8-1.8); Bilirubin, Total 1.7 mg/dL (0.1-1.0); Bun/Creatinine Ratio 26.6 (12.0-20.0); Creatinine, Blood 1.58 mg/dL (0.60-1.20); Globulin, Blood 3.4 g/dL (2.2-4.0); Potassium, Blood 3.5 mmol/L (3.5-5.5); Total Protein, Blood 6.2 g/dL (6.4-8.2)
[2022-06-14 07:36] LABS: BASOPHILS PERCENT MAN 0 % (0-2); EOSINOPHILS ABSOLUTE MAN 0.09 K/mm3 (0.00-0.68); EOSINOPHILS PERCENT MAN 1 % (0-6); LYMPHOCYTES ABSOLUTE MAN 1.48 K/mm3 (0.84-5.20); LYMPHOCYTES PERCENT MAN 16 % (21-46); MONOCYTES ABSOLUTE MAN 0.92 K/mm3 (0.16-1.47); MONOCYTES PERCENT MAN 10 % (4-13); NEUTROPHILS ABSOLUTE MAN 6.77 K/mm3 (1.96-9.15); SEG NEUTROPHILS PERCENT MAN 73 % (41-73); TOTAL CELLS COUNTED 100
[2022-06-14 16:32] LABS: Bun/Creatinine Ratio 27.8 (12.0-20.0); Calcium, Blood 9.4 mg/dL (8.5-10.1); Creatinine, Blood 1.62 mg/dL (0.60-1.20); Magnesium, Blood 1.9 mg/dL (1.6-2.4); Potassium, Blood 3.4 mmol/L (3.5-5.5)
--- NOTE | 2022-06-14 16:56 | NUR ---
SHIFT SUMMARY PATIENT IS ALERT AND ORIENTED 2-3X. PATIENT HAS HAD NO ACUTE EVENTS THIS SHIFT. VITAL SIGNS REVIEWED. PATIENT HAS NOT COMPLAINED OF NAUSEA, SOB OR VOMITTING. PATIENT HAS COMPLAINED OF PAIN IN EAR AND HEADACHE. MEDICATED PER EMAR. BED IN LOCKED AND LOWEST POSITION. CALL LIGHT IN PLACE. WILL MONITOR UNTIL SHIFT CHANGE.
--- NOTE | 2022-06-14 17:04 | NUR ---
Good conversation with patient. He has been struggling with more pain and fatigue. we discussed his care and needs. He states he is [age] and mobility is getting harder. He denies headaches or ringing in his ears. He does however have a bed earache in the left ear. He also has some teeth that look decayed. He also has a tear to his left inner corner of his eye that is painfull. He states his feet hurt more and he has hed three falls. His states he has [facility] and struggling with therapy. We aslo reviewed if he has an advance directive or polst and a poa. he states he has a will only. He also states he and his have talked and they do not want life support. Adam have two daughters that help them with their care. They are trying to move closer to [place] and find affordable rental. Will update care managers. He may benefti from rehab but I doubt he ill accept in or do well with being away from his family. Recinos dhis with and update will complete a polst. will continue to follow. Pt high risk for readmission. will update amedysis on his needs.
--- NOTE | 2022-06-15 04:13 | NUR ---
SHIFT SUMMARY: Pt A/Ox3. Sometimes uses his call light but otherwise shouts out when he needs something. This shift he made sexually inappropriate comments towards staff, but was redirected easily. He was repostioned as tolerated throughout the night. He continues to have frequent output. He typically uses the urinal, but is sometimes incontinent. He had c/o generalized pain, recieved PRN tylenol. no c/o nausea, or dizziness. Lung sounds are coarse. Edema in legs around a +3.
[2022-06-15 06:19] LABS: Hematocrit 38.1 % (37.0-53.0); Hemoglobin 13.5 g/dL (13.5-17.5); Mean Corpuscular HGB 30.5 pg (26.0-34.0); Mean Corpuscular HGB Conc 35.4 g/dL (31.5-36.5); Mean Corpuscular Volume 86 fL (80-100); Platelet Count 71 K/mm3 (150-400); RDW Coefficient Variation 16.7 % (11.7-14.2); RDW Standard Deviation 52.3 fL (35.1-46.3); Red Blood Cell Count 4.43 M/mm3 (4.30-5.90); White Blood Cell Count 5.28 K/mm3 (4.00-11.30)
[2022-06-15 06:26] LABS: Bun/Creatinine Ratio 32.3 (12.0-20.0); Calcium, Blood 9.7 mg/dL (8.5-10.1); Creatinine, Blood 1.64 mg/dL (0.60-1.20); Potassium, Blood 3.1 mmol/L (3.5-5.5)
--- NOTE | 2022-06-15 19:03 | NUR ---
SUMMARY- PT ALERT ORIENTED TO SELF, PLACE, FAMILY, FOLLOWS COMMANDS. BEDREST, DEPENDANT WITH ADL'S. HAD 3 LG LOOSE BROWN INCONT STOOLS THIS SHIFT. CONTINENT OF URINE IN URINAL. PT EVAL STOOD PT AT EDGE OF BED AND BELEIVES PT IS CLOSE TO BASELINE AND ABLE TO DC HOME WITH WALKER AND BSC. PT ALREADY HAS [facility] IMVOLVED. CASE MAN UNABLE TO CONTACT AND DR DEJESUS AWARE STAFF COULDNT FACILITATE DISCHARGE THIS AFTERNOON. RECEIVED ORDER TO DC TELE AND IV. PT TOLERATING FOOD AND FLUIDS. PLAN FOR DC HOME TOMORROW. WILL REPORT TO NOC RN
--- NOTE | 2022-06-16 05:21 | NUR ---
SUMMARY: PT A/OX3 AND IS [place] BUT SPECIFIES NEEDS APPROPRIATELY. HE CALLS FREQUENTLY FOR NONACUTE DEMANDS BUT FOLLOWS INSTRUCTIONS AND IS COOPERATIVE W/CARE. HE REMAINED ON BEDREST T/O NOCTE AND IS DEPENDENT FOR ADL'S BUT PHYS TX WAS ABLE TO STAND PT AT EOB W/FWW, GB AND 2PA DURING DAY SHIFT. FROM THEIR PERSPECTIVE THEY BELIEVE THIS IS CLOSE TO BASELINE AND PLAN IS FOR D/C TODAY W/HOME HEALTH, AMEDASIS IN PLACE. CALLED AT BEGINNING OF SHIFT EXPRESSING FEARS HE'S NOT READY TO COME HOME D/T LEVEL OF CARE STILL REQUIRED, WILL ALERT DAY SHIFT TO HER CONCERNS. PT USED URINAL AD SEAMUS AND HAS BEEN CONTINENT T/O NOCTE. TYLENOL RECIEVED FOR TOLERABLE RELIEF OF GENERALIZED PAIN. NO ACUTE CHANGES, VSS/AFEBRILE. WCTM AND REPORT TO DAY RN.
[2022-06-16] MEDS ORDERED: BUME2 PO (11:26)
--- NOTE | 2022-06-16 12:28 | NUR ---
PT DC'd HOME WITH . DISCHARGE INSTRUCTIONS AND EDUCATION GIVEN. ALL QUESTIONS AND CONCERNS ANSWERED. NO NEW QUESTIONS. BELONGINGS SENT HOME WITH PT. PT TAKEN BY WHEELCHAIR TO WAITING VEHICLE.
== END 2022-06-16 11:58 | disposition home health service (06) | DRG 292 ==
LOC: ER 08:44 → MEDS 08:45
PROVIDERS: Emergency Medicine; Family Medicine; Nurse Practitioner Acute Care; ADMIT Internal Medicine
DX: I50.33 Acute on chronic diastolic (congestive) heart failure (principal); J44.1 Chronic obstructive pulmonary disease with (acute) exacerbation; I48.0 Paroxysmal atrial fibrillation; N18.30 Chronic kidney disease, stage 3 unspecified; N40.0 Benign prostatic hyperplasia without lower urinary tract symptoms; R41.0 Disorientation, unspecified; E87.6 Hypokalemia; I89.0 Lymphedema, not elsewhere classified; D69.6 Thrombocytopenia, unspecified; E66.01 Morbid (severe) obesity due to excess calories; K46.9 Unspecified abdominal hernia without obstruction or gangrene; D63.1 Anemia in chronic kidney disease; M17.11 Unilateral primary osteoarthritis, right knee; K64.9 Unspecified hemorrhoids; R26.2 Difficulty in walking, not elsewhere classified; Z20.822 Contact with and (suspected) exposure to COVID-19; Z23 Encounter for immunization; Z85.528 Personal history of other malignant neoplasm of kidney; Z72.51 High risk heterosexual behavior; Z91.048 Other nonmedicinal substance allergy status; Z79.899 Other long term (current) drug therapy; Z79.01 Long term (current) use of anticoagulants; Z98.890 Other specified postprocedural states; Z90.5 Acquired absence of kidney; Z68.38 Body mass index [BMI] 38.0-38.9, adult
CPT/HCPCS: 0241U; 36415; 51702; 71045; 73562-RT; 80048; 80053; 80069; 81003; 82803; 83735; 83880; 84145; 84484; 85025; 85027; 90686; 92526; 92610; 96374-59; 96376; 97110; 97116; 97162; 97530; 99285-25; A9270; G0008; G0378; J0696; J1940

== ENCOUNTER 2022-06-19 02:23 | Emergency (ER) | payer MEDICARE, OTHER ==
[~2022-06-19] VITALS: Ht 198.1 cm; Wt 149.7 kg
[2022-06-19 02:53] LABS: BASOPHILS ABSOLUTE AUTO 0.09 K/mm3 (0.00-0.23); BASOPHILS PERCENT AUTO 2 % (0-2); EOSINOPHILS ABSOLUTE AUTO 0.05 K/mm3 (0.00-0.68); EOSINOPHILS PERCENT AUTO 1 % (0-6); Hemoglobin 13.9 g/dL (13.5-17.5); IMMATURE GRAN ABSOLUTE AUTO 0.12 K/mm3 (0.00-0.10); IMMATURE GRAN PERCENT AUTO 3 % (0-1); LYMPHOCYTES ABSOLUTE AUTO 1.37 K/mm3 (0.84-5.20); LYMPHOCYTES PERCENT AUTO 35 % (21-46); MONOCYTES ABSOLUTE AUTO 0.94 K/mm3 (0.16-1.47); MONOCYTES PERCENT AUTO 24 % (4-13); Mean Corpuscular HGB 30.4 pg (26.0-34.0); Mean Corpuscular HGB Conc 34.8 g/dL (31.5-36.5); Mean Corpuscular Volume 88 fL (80-100); NEUTROPHILS PERCENT AUTO 35 % (41-73); Platelet Count 75 K/mm3 (150-400); RDW Coefficient Variation 16.3 % (11.7-14.2); RDW Standard Deviation 51.9 fL (35.1-46.3); Red Blood Cell Count 4.57 M/mm3 (4.30-5.90); White Blood Cell Count 3.97 K/mm3 (4.00-11.30)
[2022-06-19 03:11] LABS: Albumin, Blood 3.2 g/dL (3.4-5.0); Albumin/Globulin Ratio 0.9 (0.8-1.8); Bilirubin, Total 1.3 mg/dL (0.1-1.0); Bun/Creatinine Ratio 31.5 (12.0-20.0); Creatinine, Blood 1.62 mg/dL (0.60-1.20); Globulin, Blood 3.4 g/dL (2.2-4.0); Potassium, Blood 3.5 mmol/L (3.5-5.5); Total Protein, Blood 6.6 g/dL (6.4-8.2)
[2022-06-19 03:30] LABS: Influenza A, PCR NEGATIVE (NEGATIVE); Influenza B, PCR NEGATIVE (NEGATIVE); Resp Syncytial Virus, PCR NEGATIVE (NEGATIVE)
[2022-06-19 03:41] LABS: SARS-Cov-2 (COVID-19) PCR, MMC POSITIVE (NEGATIVE)
== END 2022-06-19 11:16 | disposition home or self-care (01) ==
LOC: ER 02:23
PROVIDERS: Emergency Medicine
DX: U07.1 COVID-19 (principal); Z91.09 Other allergy status, other than to drugs and biological substances; Z79.899 Other long term (current) drug therapy
CPT/HCPCS: 0241U; 36415; 71045; 80053; 83880; 84484; 85025; 93005; 93010